=== PATIENT | female | born 1990 | race Caucasian/White ===

== ENCOUNTER → 2018-10-20 09:36 | Outpatient (CLI) | payer OTHER, MEDICAID, SELFPAY ==
[2018-10-20 11:12] LABS: HCG Quantitative /Beta subunit 210.27 mIU/mL
== END ==
PROVIDERS: Family Provider Family Medicine; PCP Family Medicine
DX: N91.2 Amenorrhea, unspecified (principal)
CPT/HCPCS: 36415; 84702

== ENCOUNTER → 2018-10-21 15:08 | Outpatient (CLI) | payer OTHER, MEDICAID, SELFPAY ==
[2018-10-21 15:57] LABS: Add Manual Diff / Slide Review NO; Basophils Percent Auto 0.6 % (0-2); Hematocrit 39.9 % (36-46); Hemoglobin 13.5 g/dL (12.0-16.0); Lymphocytes Percent Auto 25.8 % (25-40); Mean Corpuscular HGB Conc 33.8 % (30-36); Mean Corpuscular Hemoglobin 29.8 PG (26-34); Mean Corpuscular Volume 88.3 fL (80-100); Monocytes Percent Auto 8.7 % (3-14); Neutrophils Absolute Auto 5600 /uL (3000-5900); Neutrophils Percent Auto 62.9 % (50-75); Platelet Count 237 X10^3/uL (150-400); Red Blood Cell Count 4.52 X10^6/uL (4.0-5.2); White Blood Cell Count 8.9 X10^3/uL (4.5-11.0)
[2018-10-21 16:00] LABS: Appearance Urine UA CLEAR; Bilirubin Urine UA NEGATIVE (NEGATIVE); Color Urine UA YELLOW; Glucose Urine UA NEGATIVE (Normal); Ketones Urine UA NEGATIVE (NEGATIVE); Leukocyte Esterase Urine UA NEGATIVE (NEGATIVE); Nitrite Urine UA NEGATIVE (Negative); Occult Blood Urine UA NEGATIVE (Negative); Protein Urine UA NEGATIVE (Negative); Specific Gravity Urine UA >=1.030 (1.000-1.035); Urobilinogen Urine UA 0.2 E.U./dL (0.2)
[2018-10-21 17:39] LABS: HIV 1 and 2 Antibody NEGATIVE (NEGATIVE); Hep C Virus Ab w/Reflex Quant NEGATIVE s/c (NEGATIVE); Hepatitis B Surface Antigen NEGATIVE s/c (NEGATIVE)
[2018-10-21 17:40] LABS: Rubella Antibody IgG 73.1 IU/mL (>15)
[2018-10-23 14:59] LABS: RPR Screen Nonreactive (Nonreactive)
[2018-10-23 15:06] LABS: HSV 2 IGG AB < 0.90 index (< 0.90); HSV1IGG < 0.90 index (< 0.90)
== END ==
PROVIDERS: PCP Family Medicine
DX: Z34.91 Encounter for supervision of normal pregnancy, unspecified, first trimester (principal)
CPT/HCPCS: 36415; 80055; 81003; 86695; 86696; 86703; 86787; 86803; 86850; 86900; 86901; 87086

== ENCOUNTER → 2018-12-14 12:07 | Outpatient (CLI) | payer OTHER, MEDICAID, SELFPAY | PROVIDERS: PCP Family Medicine; Visit Provider Specialist | DX: Z34.81 Encounter for supervision of other normal pregnancy, first trimester (principal); Z3A.12 12 weeks gestation of pregnancy; Z36.0 Encounter for antenatal screening for chromosomal anomalies | CPT/HCPCS: 36415; 84163; 84702 ==

== ENCOUNTER → 2019-01-11 10:19 | Outpatient (CLI) | payer OTHER, MEDICAID, SELFPAY ==
[2019-01-11 12:12] LABS: Urine N gonorrhoeae NOT DETECTED
[2019-01-11 12:25] LABS: Urine Chlamydia NOT DETECTED
== END ==
PROVIDERS: Family Provider Family Medicine; PCP Family Medicine
DX: Z34.82 Encounter for supervision of other normal pregnancy, second trimester (principal); Z3A.16 16 weeks gestation of pregnancy
CPT/HCPCS: 36415; 82105; 82677; 84163; 84702; 86336; 87491; 87591

== ENCOUNTER → 2019-03-17 09:56 | Outpatient (CLI) | payer OTHER, MEDICAID, SELFPAY ==
[2019-03-17 11:58] LABS: Hematocrit 31.8 % (36-46); Hemoglobin 10.9 g/dL (12.0-16.0)
[2019-03-17 12:28] LABS: GTT (PREG) 1 Hour PP 50gm Dose 118 mg/dL (76-139)
== END ==
PROVIDERS: PCP Family Medicine
DX: Z34.82 Encounter for supervision of other normal pregnancy, second trimester (principal)
CPT/HCPCS: 36415; 82950; 85014; 85018

== ENCOUNTER 2019-05-23 11:52 | Outpatient (CLI) | payer OTHER, MEDICAID, SELFPAY | END 2019-05-23 12:55 | disposition home or self-care (01) | LOC: LABOR 12:24 → OB 05-25 12:44 | PROVIDERS: PCP Family Medicine | DX: O26.893 Other specified pregnancy related conditions, third trimester (principal); Z3A.34 34 weeks gestation of pregnancy | CPT/HCPCS: 59025; G0378; G0379 ==

== ENCOUNTER → 2019-06-06 10:26 | Outpatient (CLI) | payer OTHER, MEDICAID, SELFPAY ==
[2019-06-07 14:58] LABS: Strep Grp B PCR NEG for Grp B Strep
== END ==
PROVIDERS: PCP Family Medicine
DX: Z34.83 Encounter for supervision of other normal pregnancy, third trimester (principal); Z3A.36 36 weeks gestation of pregnancy
CPT/HCPCS: 87653

== ENCOUNTER 2019-06-24 05:25 | Observation (INO) | payer OTHER, MEDICAID, SELFPAY ==
--- NOTE | 2019-06-24 06:00 | DI.US.S_ITS ---
PROCEDURE: US OB LIMITED INDICATIONS: POSITION ONLY OUTSIDE/PRIOR DATING DATA: Last menstrual period (LMP): Unknown. LMP-based estimated date of delivery (JANEY): Unknown. First dating scan (date and location): 10/18/18. Estimated date of delivery (JANEY) from first dating scan: 07/01/19. TECHNIQUE: Real-time scanning was performed of the fetus, with image documentation and biometric measurements. Endovaginal scanning: Not performed COMPARISON: [facility], , OB >= 14 WEEKS FETUS, 06/21/2019, 10:51. [facility], , OB > 14 WEEKS, 02/14/2019, 10:38. [facility], , OB <= 14 WEEKS FETUS, 12/14/2018, 11:40. [facility], [facility], 03/27/2015, 18:49. FINDINGS: General: A single living intrauterine gestation is present. Presentation: Vertex. heart rate: 155 beats per minute. Other: Not applicable. IMPRESSION: Single living intrauterine fetus in vertex presentation. Dictated by: Neo Mcdonald M.D. on 06/24/2019 at 8:55 Approved by: Neo Mcdonald M.D. on 06/24/2019 at 8:57
== END 2019-06-24 09:35 | disposition home or self-care (01) ==
PROVIDERS: PCP Family Medicine
DX: O32.1XX1 Maternal care for breech presentation, fetus 1 (principal); Z3A.39 39 weeks gestation of pregnancy
CPT/HCPCS: 59025; 59050; 76815; G0378; G0379

== ENCOUNTER 2019-06-27 17:50 | Inpatient (IN) | payer OTHER, MEDICAID, SELFPAY ==
[2019-06-27 18:52] VITALS: BP 100/64
[2019-06-27 18:55] LABS: Add Manual Diff / Slide Review NO; Basophils Absolute Auto 100 /uL (0-100); Basophils Percent Auto 0.8 % (0-2); Eosinophils Absolute Auto 200 /uL (0-450); Eosinophils Percent Auto 1.8 % (2-4); Hematocrit 34.9 % (36-46); Hemoglobin 11.7 g/dL (12.0-16.0); Lymphocytes Absolute Auto 1800 /uL (1100-4500); Lymphocytes Percent Auto 18.9 % (25-40); Mean Corpuscular HGB Conc 33.5 % (30-36); Mean Corpuscular Hemoglobin 28.1 PG (26-34); Monocytes Absolute Auto 900 /uL (0-900); Neutrophils Absolute Auto 6600 /uL (1500-7000); Neutrophils Percent Auto 69.5 % (50-75); Platelet Count 239 X10^3/uL (150-400); Red Blood Cell Count 4.16 X10^6/uL (4.0-5.2); Red Cell Distribution Width 14.9 % (11.6-14.8); White Blood Cell Count 9.5 X10^3/uL (4.5-11.0)
[2019-06-28] MEDS: LACTATED RINGERS 1,000 ML 125 ML IV ×2 (05:17→08:05)
[2019-06-28] MEDS: OXYTOCIN PREMIX 30 UNIT/500 ML PLAST..BAG IV (05:20)
[2019-06-28] MEDS: fentaNYL 100 MCG/2 ML INJ (07:35)
--- NOTE | 2019-06-28 07:37 | P.HPOB_ITS ---
OB HPI Date/Time Date of admission: 06/28/19 Date Patient Seen: 06/28/19 Time Patient Seen: 07:33 History of Present Condition Chief complaint: : 5 Para: 4 Estimated Date of Delivery: 06/29/19 Estimated Gestational Age (weeks): 40 wee Narrative: Lili Quiñones is a 28 year old female five para four caring a surrogate . The patient is past medical history, review of systems an antepartum course had been unremarkable. The patient in late was a transverse lie, then a vertex then a breech presentation and that a vertex. She was scheduled for induction on the basis of the unstable lie. Indications Indication for induction OB: history of rapid labor History of Present care: good care and number of visits (14) Dating criteria: LMP confirmed by 1st trimester US Ultrasounds: normal 1st trimester US, normal mid trimester US and other Obstetrical complications: none Medical complications: none Preadmission Labs Blood type: A (+) positive -: Antibody screen: negative, Cystic fibrosis screen: unknown, GBS status: negative, HBsAG: negative, HIV: negative, HSV 1: negative, HSV 2: negative and RPR/VDLR: negative -: Chlamydia screen: detected (Negative) and Gonorrhea screen: detected (Negative) -: Rubella: immune and Varicella: immune HCT: 32 HCAB: negative PAP: Normal Sequential screen: Negative Quad screen: Normal 1 hr GTT: 118 Evaluation Evaluation Laboratory results: Laboratory Tests 06/27/19 06/27/19 18:45 18:45 WBC 9.5 RBC 4.16 Hgb 11.7 L Hct 34.9 L MCV 84.0 MCH 28.1 MCHC 33.5 RDW 14.9 H Plt Count 239 Neut % (Auto) 69.5 Lymph % (Auto) 18.9 L Letcher % (Auto) 9.0 Eos % (Auto) 1.8 L Baso % (Auto) 0.8 Neut # (Auto) 6600 Lymph # (Auto) 1800 Letcher # (Auto) 900 Eos # (Auto) 200 Baso # (Auto) 100 Blood Type A Positive Antibody Screen Negative [facility] Social History (System 10/20/18 @ 07:57 by Alexei Sierra) Smoking Status: Never smoker Social History Smoking Status: Never smoker Meds Home Medications Medication Instructions Recorded Confirmed Type 1 tab PO DAILY 11/01/18 06/27/19 History vitamin,calcium,[id number] acid tablet Allergies Allergy/AdvReac Type Severity Reaction Status Date / Time adhesive tape AdvReac Intermediate Verified 11/01/18 10:14 hydrocodone [HYDROCODONE] AdvReac Intermediate NAUSEA Verified 06/27/19 18:18 acetaminophen [From Percocet] AdvReac Verified 11/01/18 10:06 oxycodone [From Percocet] AdvReac Verified 11/01/18 10:07 Review of Systems Review of Systems All systems reviewed & are unremarkable except as noted in HPI and below Exam Const General: cooperative and healthy appearing HENMT Head: normal to inspection Ears: hearing grossly normal bilaterally Nose: external nose normal Face and sinus: normal facial exam Mouth: oral mucosae normal, lip normal, tongue normal and moist mucous membranes Teeth and gingiva: dentition normal Throat: posterior oropharynx normal Eyes General: appearance normal, both eyes and all related structures Neck Neck: normal visual inspection and full ROM Chest Chest: normal inspection of the chest and normal palpation of entire chest wall Breast inspection: normal inspection of the breasts and normal inspection of the axillae Breast Palpation: normal palpation of the breasts and normal palpation of the axillae Resp Effort & Inspection: normal respiratory effort Auscultation: clear to auscultation bilaterally Cardio Palpation: normal PMI Rate: regular rate Rhythm: regular rhythm Heart Sounds: S1 normal and S2 normal GI Inspection: normal to inspection Palpation: soft and no hepatosplenomegaly Percussion: normal to percussion Auscultation: normal bowel sounds OB/External & Speculum: external exam normal Manual OB Exam: dilated 3, effaced 75% and station -2 Uterus Location (Fundal Height): 36 Presentation: vertex Estimated Weight (lbs): 7 Back/Spine/Pelvis Thoracic/Lumbar Spine: thoracic and lumbar spine normal to inspection Skin General: no rashes or lesions noted Neuro General: alert, oriented x3, tone normal and moves all extremities Cognition: normal cognition Speech: speech normal Gait: normal gait Motor: muscle tone normal throughout Sensory Exam: no sensory deficits noted Extrem General: normal to inspection and normal exam except as noted Psych Appearance: grossly normal and well kempt Mental Status: mental status grossly normal Speech and Movement: speech and movement normal Objective Labs Result Diagrams: 06/27/19 18:45 Labs: Laboratory Results - last 24 hr 06/27/19 06/27/19 18:45 18:45 WBC 9.5 RBC 4.16 Hgb 11.7 L Hct 34.9 L MCV 84.0 MCH 28.1 MCHC 33.5 RDW 14.9 H Plt Count 239 Neut % (Auto) 69.5 Lymph % (Auto) 18.9 L Letcher % (Auto) 9.0 Eos % (Auto) 1.8 L Baso % (Auto) 0.8 Neut # (Auto) 6600 Lymph # (Auto) 1800 Letcher # (Auto) 900 Eos # (Auto) 200 Baso # (Auto) 100 Blood Type A Positive Antibody Screen Negative Assessment and Plan Assessment and Plan Assessment and Plan narrative: Term intrauterine Unstable lie Currently vertex Plan was for induction. Patient however went into labor spontaneously
[2019-06-28] MEDS: LACTATED RINGERS 1,000 ML 100 ML IV (08:04)
--- NOTE | 2019-06-28 10:26 | PM.OBPRVD ---
Events: Labor Augmentation Delivery date: 06/28/19 Intrapartal events: None Cervical ripening method: none Induction method: per pitocin protocol Delivery augmentation: rupture of membranes Delivery monitor: external FHT and external uterine Route of delivery: Episiotomy description: None L&D Laceration Description: Superficial (perineal) Delivery repair: chromic (4-0) Estimated blood loss (mL): 150 Anesthesia type: Epidural Complications: None Narrative: Patient complete and pushed with 3 contractions. At 10:09 a.m., a live female delivered spontaneously in the MARINO presentation with the right arm up to the chest. No nuchal cord. The remainder of the body delivered without difficulty. The cord was double clamped and cut. Cord bloods were obtained. The placenta delivered intact with a 3 vessel cord at 10:12 a.m.. Pitocin was given in the IV fluids. The fundus was massaged to firm. There was a superficial perineal laceration which was repaired with 4 0 chromic in simple interrupted suture. Hemostasis was achieved. Apgars 8 at 1 minute and 9 at 5 minutes. Estimated blood loss 150 cc. Epidural analgesia. Mother was a surrogate and the receiving parents took the baby to the nursery. Mom is stable to recovery. Plan for aftercare: To routine care
--- NOTE | 2019-06-28 10:30 | P.PCNOB_ITS ---
Events: Labor Augmentation Delivery date: 06/28/19 Intrapartal events: None Cervical ripening method: none Induction method: per pitocin protocol Delivery augmentation: rupture of membranes Delivery monitor: external FHT and external uterine Route of delivery: Episiotomy description: None L&D Laceration Description: Superficial (perineal) Delivery repair: chromic (4-0) Estimated blood loss (mL): 150 Anesthesia type: Epidural Complications: None Narrative: Patient complete and pushed with 3 contractions. At 10:09 a.m., a live female delivered spontaneously in the MARINO presentation with the right arm up to the chest. No nuchal cord. The remainder of the body delivered without difficulty. The cord was double clamped and cut. Cord bloods were obtained. The placenta delivered intact with a 3 vessel cord at 10:12 a.m.. Pitocin was given in the IV fluids. The fundus was massaged to firm. There was a superficial perineal laceration which was repaired with 4 0 chromic in simple interrupted suture. Hemostasis was achieved. Apgars 8 at 1 minute and 9 at 5 minutes. Estimated blood loss 150 cc. Epidural analgesia. Mother was a surro gate and the receiving parents took the baby to the nursery. Mom is stable to recovery. Plan for aftercare: To routine care
[2019-06-28] MEDS: IBUPROFEN 600 MG TABLET PO (17:53)
== END 2019-06-28 20:45 | disposition home or self-care (01) | DRG 807 ==
PROVIDERS: PCP Family Medicine
DX: O32.0XX0 Maternal care for unstable lie, not applicable or unspecified (principal); Z37.0 Single live birth; O70.0 First degree perineal laceration during delivery; Z3A.40 40 weeks gestation of pregnancy
CPT/HCPCS: 01967; 59050; 59400; 59409; 85025; 86850; 86900; 86901; G0378; G0379; J2590; J3010